=== PATIENT | female | born 1965 | race Caucasian/White ===

== ENCOUNTER 2017-05-31 14:30 | Emergency (ER) | payer OTHER ==
[2017-05-31] MEDS ORDERED: PROGESTERONE100 MG PO (14:46)
[2017-05-31] MEDS ORDERED: CYMBALTA60 MG PO (14:46)
[2017-05-31] MEDS ORDERED: GABAPENTIN600 MG PO (14:46)
[2017-05-31] MEDS ORDERED: ALLEGRA-D 24 H1 EACH PO (14:47)
[2017-05-31] MEDS ORDERED: SOMA250 MG PO (14:51)
[2017-05-31] MEDS ORDERED: MAGNESIUM400 MG PO (14:52)
== END 2017-05-31 15:36 | disposition home or self-care (01) ==
LOC: ED 14:30
DX: S93.402A Sprain of unspecified ligament of left ankle, initial encounter (principal); S09.90XA Unspecified injury of head, initial encounter; Z79.899 Other long term (current) drug therapy; X50.1XXA Overexertion from prolonged static or awkward postures, initial encounter; Y92.009 Unspecified place in unspecified non-institutional (private) residence as the place of occurrence of the external cause
CPT/HCPCS: 73610; 99283

== ENCOUNTER 2020-06-06 07:38 | Day surgery (SDC) | payer OTHER ==
[~2020-06-06] VITALS: Ht 167.6 cm; Wt 94.8 kg
[~2020-06-06 07:38] MED LIST: ALLEGRA-D 24 H1 EACH PO; CYMBALTA60 MG PO; GABAPENTIN600 MG PO; GLUCOPHAGE500 MG PO; MAGNESIUM400 MG PO; PROGESTERONE100 MG PO; SOMA250 MG PO; VENLAFAXINE HCL75 M2 PO
[2020-06-06] MEDS ORDERED: VITAMIN D3125 MC2 PO (07:56)
--- NOTE | 2020-06-06 09:27 | NUR ---
06/06/20 0927 Nino Dalton MD AT BEDSIDE REVIEWING PROCEDURE WITH PT. DENIES PAIN OR NAUSEA. REORIENTED TO TIME AND SITUATION
--- NOTE | 2020-06-07 09:12 | OR ---
[facility] [address], [place] [address] Signed DATE OF OPERATION: 06/06/2020 SURGEON: Adriana Campbell MD PREOPERATIVE DIAGNOSES: 1. Chronic long-standing constipation. 2. Colon screening. POSTOPERATIVE DIAGNOSIS: Normal colon. PROCEDURE: Total colonoscopy with visualization of cecum. ANESTHESIA: Intravenous sedation, fentanyl 100 mcg and Versed 10 mg. INDICATION: This 54-year-old white woman is a patient of MARI Still. She has had lifelong constipation. Various preparations have been rather ineffective in controlling her problem. She did tolerate her recent MiraLAX bowel prep well. She has tried MiraLAX on its own before, which was not durably effective. She has never had a colonoscopy in the past. She has no family history of colon cancer. She is admitted at this time to undergo colonoscopy. She understands the risks of bleeding, infection, and perforation. FINDINGS: The prep was pretty good actually. There were a few watermelon seeds implying poor compliance with recommendation of a low-fiber, but certainly adequate for visualization throughout. Actual intubation of the cecum was not forthcoming though it was visualized. The biopsy forcep was used to grasp the mucosa behind the ileocecal valve and visualize it more fully. The remaining colon was normal. DESCRIPTION OF PROCEDURE: The patient was brought to the endoscopy suite and placed in lateral decubitus position given intravenous sedation to the point of slurred speech and nystagmus. Digital rectal examination was normal. An Olympus video colonoscope was passed in the rectum and manipulated throughout the colon. The prep was good overall. The scope was advanced to the hepatic flexure. Passage through this area was challenging. Abdominal wall stabilization and other Electronically Signed By: ADRIANA CAMPBELL MD 06/07/20 0912 PATIENT NAME: EDITH BUTTS OPERATIVE REPORT DATE OF : 61 REPORT #: [id number] PHYSICIAN: ADRIANA CAMPBELL MD PCP: MACIE CORBETT PAC REPORT IS CONFIDENTIAL AND NOT TO BE RELEASED WITHOUT AUTHORIZATION [facility] [address], [place] [address] Signed maneuvers failed to allow for passage of the scope despite every effort. She was ultimately turned to supine position and without abdominal wall stabilization, careful manipulation allowed for passage of the scope to the right colon ultimately to visualize though not intubate the cecum. The biopsy forcep was used to grasp the cecal mucosa behind the ileocecal valve, elevated showing no sign of abnormality. Photographs were taken. The scope was then carefully withdrawn and examination throughout showed no sign of polyps, cancer, or diverticular formations or other issues. The scope was ultimately removed. The patient was taken to the recovery room in good condition. CONCLUDING DIAGNOSIS: Normal colon, probable idiopathic constipation. PLAN: We will recommend MiraLAX 2 capsules daily now that she has been reasonably cleaned out. She will return to the ongoing care of Macie Corbett. Recommend a repeat colonoscopy in 10 years sooner if needed for bleeding, etc. MD ISHAAN Cardoza/ORAL /[id number] cc: Macie Corbett PA-C Copies: MACIE CORBETT ~ Electronically Signed By: ADRIANA CAMPBELL MD 06/07/20 0912 PATIENT NAME: EDITH BUTTS ANN OPERATIVE REPORT DATE OF : 61 REPORT #: [id number] PHYSICIAN: ADRIANA CAMPBELL MD PCP: MACIE CORBETT REPORT IS CONFIDENTIAL AND NOT TO BE RELEASED WITHOUT AUTHORIZATION
== END 2020-06-06 10:04 | disposition home or self-care (01) ==
LOC: DS 07:38 → OPS 07:38 → DS 08:30 → OPS 10:04
PROVIDERS: Surgery
PROC: 0DJD8ZZ Inspection of Lower Intestinal Tract, Via Natural or Artificial Opening Endoscopic (ICD-10-PCS; principal; 2020-06-06 08:30)
DX: Z12.11 Encounter for screening for malignant neoplasm of colon (principal); K59.00 Constipation, unspecified; E03.9 Hypothyroidism, unspecified; M79.7 Fibromyalgia; Z79.899 Other long term (current) drug therapy; Z79.82 Long term (current) use of aspirin; Z78.0 Asymptomatic menopausal state
CPT/HCPCS: 99153; G0500; J2250; J3010; J7121

== ENCOUNTER 2022-05-11 16:57 | Emergency (ER) | payer OTHER ==
[~2022-05-11] VITALS: Ht 167.6 cm; Wt 86.4 kg
[~2022-05-11 16:57] MED LIST changes: +VITAMIN D3125 MC2 PO
[2022-05-11] MEDS ORDERED: CYCLOBENZAPRINE10 MG PO (20:58)
[2022-05-11] MEDS ORDERED: MELOXICAM15 MG PO (20:58)
== END 2022-05-11 21:15 | disposition home or self-care (01) ==
LOC: ED 16:57
DX: S16.1XXA Strain of muscle, fascia and tendon at neck level, initial encounter (principal); S46.811A Strain of other muscles, fascia and tendons at shoulder and upper arm level, right arm, initial encounter; S46.812A Strain of other muscles, fascia and tendons at shoulder and upper arm level, left arm, initial encounter; X50.9XXA Other and unspecified overexertion or strenuous movements or postures, initial encounter; Z87.891 Personal history of nicotine dependence; Z79.899 Other long term (current) drug therapy; Z79.84 Long term (current) use of oral hypoglycemic drugs
CPT/HCPCS: 72040; 73030; 96372; 99283-25; J1885; J3360